=== PATIENT | male | born 1970 | race Caucasian/White ===

== ENCOUNTER 2018-11-10 12:05 | Emergency (ER) | payer OTHER, SELFPAY ==
[2018-11-10 12:16] VITALS: BP 148/101; PULSE 77; RESP 14; TEMP 36.4; O2SAT 96
--- NOTE | 2018-11-10 13:02 | PC.NURSE ---
Surgifoam and tube guaze dressing
--- NOTE | 2018-11-10 13:10 | ED_ITS ---
HPI - Skin/Abscess/Foreign Bdy <FELIX Lizama - Last Filed: 11/10/18 13:16> General Chief complaint: Skin/Abscess/Foreign Body Stated complaint: Cut thumb Time Seen by Provider: 11/10/18 12:31 Source: patient Mode of arrival: ambulatory Limitations: no limitations History of Present Illness HPI narrative: The patient is a 48-year-old male for smoker with history of generalized anxiety disorder who states he cut the tip of his thumb off. He states he was using a metal knife. His tetanus was in the past 3 years. He states he has full range of motion of his left thumb. He is right-hand dominant. He did not wash out the laceration prior to arrival. Related Data Previous Rx's Medication Instructions Recorded alprazolam 1 mg tablet 1 mg PO TID PRN #20 tab 07/26/18 propranolol 20 mg tablet 20 mg PO .COMPLEX #14 tab 07/26/18 Allergies Allergy/AdvReac Type Severity Reaction Status Date / Time No Known Drug Allergies Allergy Verified 11/10/18 12:19 Review of Systems <FELIX Lizama - Last Filed: 11/10/18 13:16> Review of Systems GENERAL: Denies chills, fatigue, malaise, fever, sweats. HEENT: Denies sinus pain, ear pain, sore throat, difficulty swallowing, dizzine ss. RESPIRATORY: Denies dyspnea, cough, wheezing, hemoptysis, sputum. CARDIOVASCULAR: Denies chest pain, palpitations, orthopnea, edema, GASTROINTESTINAL: Denies nausea, vomiting, abdominal pain, diarrhea, constipation, melena. : Denies dysuria, frequency, incontinence, hematuria, urinary retention. MUSCULOSKELETAL: See HPI SKIN: See HPI NEUROLOGIC: Denies weakness, headache, numbness, change in speech, confusion, seizures, incoordination. PSYCHIATRIC: No concerning psychosocial issues. 12 point review of systems is negative except for those stated above PFSH <FELIX Lizama - Last Filed: 11/10/18 13:16> Medical History Irritable bowel syndrome (IBS) (Chronic) Generalized anxiety disorder (Chronic) Social History Smoking Status: Former smoker Exam <FELIX Lizama - Last Filed: 11/10/18 13:16> Narrative Exam Narrative: GENERAL: This is a well-nourished, well-developed patient, in no acute distress HEAD: Atraumatic. Normocephalic. No temporal or scalp tenderness. EYES: Pupils equal round and reactive. Extraocular motions intact. No scleral icterus. No injection or drainage. ENT: Nose without bleeding, purulent drainage or septal hematoma. Throat without erythema, tonsillar hypertrophy or exudate. Uvula midline. Airway patent. NECK: Trachea midline. No JVD or lymphadenopathy. Supple, nontender, no meningeal signs. CARDIOVASCULAR: Regular rate and rhythm RESPIRATORY: No cough. No increased respiratory effort. No stridor. EXTREMITIES: The patient is able to flex and extend left thumb against resistance. Positive left radial pulse. Capillary refill less than 2 seconds. BACK: Nontender without deformity or crepitance. No flank tenderness. NEURO: AOx3. SKIN: 1 x 1.5 cm avulsion to tip of left thumb. No active bleeding on exam. No obvious foreign bodies. Through dermis. No obvious muscle or tendon involvement. Initial Vital Signs Initial Vital Signs: Vital Signs Temperature 97.6 F 11/10/18 12:16 Pulse Rate 77 11/10/18 12:16 Respiratory Rate 14 11/10/18 12:16 Blood Pressure 148/101 H 11/10/18 12:16 Pulse Oximetry 96 11/10/18 12:16 <Ade Szymanski DO - Last Filed: 11/13/18 21:43> Initial Vital Signs Initial Vital Signs: Vital Signs Temperature 97.6 F 11/10/18 12:16 Pulse Rate 77 11/10/18 12:16 Respiratory Rate 14 11/10/18 12:16 Blood Pressure 148/101 H 11/10/18 12:16 Pulse Oximetry 96 11/10/18 12:16 Procedures <FELIX Lizama - Last Filed: 11/10/18 13:16> Orthopedic Splinting/Casting Injury #1: Side: left Upper Extremity Injury Location: finger Upper Extremity Immobilizer: aluminum form splint Post splinting neuro exam: intact Post splinting vascular exam: intact Placed by: Nursing Course <FELIX Lizama - Last Filed: 11/10/18 13:16> Vital Signs - 8 hr 11/10/18 12:16 Temperature 97.6 F Pulse Rate 77 Respiratory Rate 14 Blood Pressure 148/101 H Pulse Oximetry 96 <Ade Szymanski DO - Last Filed: 11/13/18 21:43> Vital Signs - 8 hr 11/10/18 12:16 Temperature 97.6 F Pulse Rate 77 Respiratory Rate 14 Blood Pressure 148/101 H Pulse Oximetry 96 MDM - Skin/Abscess/Foreign Bdy <YADIRA Lizama-BC - Last Filed: 11/10/18 13:16> [facility] Narrative Medical decision making narrative: The patient is a 48-year-old male who presents with an avulsion laceration. It was cleansed with Hibiclens in the emergency department. He is neurovascularly intact. Given the nature of the injury, I could not suture it. It was dressed by nursing with surgifoam gauze. I discussed at length monitoring for signs and symptoms of infection such as redness, pus etc. Patient declined x-ray today. He states he is not concerned about fracture or possible foreign body. I discussed at length follow up with primary care provider as well as coming back to the emergency department for any acute concerns such as chest pain shortness of breath etc. No questions or concerns upon discharge Discharge Plan Departure Patient Disposition: Home Clinical Impression: Avulsion of skin of thumb Qualifiers: Encounter type: initial encounter Laterality: left Qualified Code(s): S61.002A - Unspecified open wound of left thumb without damage to nail, initial encounter Discharge Date/Time: 11/10/18 13:16 Interventions: ED Discharge Assessment Last Done: 11/10/18 13:15 Instructions: DI for Avulsion Laceration (Not Requiring Sutures) Activity Restrictions/Additional Instructions: Please monitor your avulsion for signs and symptoms of infection. This includes redness, pus and fever. Please be evaluated if any of these occur. Please keep the laceration clean and dry. Do not submerge her laceration and dirty water such as dishwater, wisdom water etc. Please follow up with primary care provider as needed and able. Come back to the emergency department for any acute concerns such as chest pain shortness of breath etc Prescriptions: No Action alprazolam 1 mg tablet 1 mg PO TID PRN (Reason: anxiety) Qty: 20 RF: 0 propranolol 20 mg tablet 20 mg PO .COMPLEX Qty: 14 RF: 3 Referrals: Angelito Manley MD [Primary Care Provider] - <Ade Szymanski DO - Last Filed: 11/13/18 21:43> Cosign ED Attending Cosclaraature Attestation: I was immediately available in the department for consultation. Documentation has been reviewed. I agree with assessment and plan.
== END 2018-11-10 13:16 | disposition home or self-care (01) ==
PROVIDERS: Emergency Provider Nurse Practitioner Family; PCP Internal Medicine
DX: S61.012A Laceration without foreign body of left thumb without damage to nail, initial encounter (principal); W26.0XXA Contact with knife, initial encounter
CPT/HCPCS: 99282; 99283

== ENCOUNTER → 2018-11-27 15:03 | Outpatient (CLI) | payer OTHER, SELFPAY | PROVIDERS: PCP Internal Medicine; Visit Provider Physician Assistant | DX: L08.9 Local infection of the skin and subcutaneous tissue, unspecified (principal); T14.8XXA Other injury of unspecified body region, initial encounter | CPT/HCPCS: 87070; 87075; 87205 ==

== ENCOUNTER → 2019-10-11 14:22 | Outpatient (CLI) | payer OTHER, SELFPAY ==
[2019-10-13 21:36] LABS: COVID19 Sendout Not Detected (Not Detected)
== END ==
PROVIDERS: PCP Internal Medicine; Visit Provider Family Medicine
DX: R05 Cough (principal)
CPT/HCPCS: 87635

== ENCOUNTER → 2019-10-11 14:33 | Outpatient (CLI) | payer OTHER, SELFPAY ==
--- NOTE | 2019-10-11 14:35 | DI.RAD.S_ITS ---
PROCEDURE: XR CHEST 2V INDICATIONS: cough, SOB TECHNIQUE: 2 views of the chest were acquired. COMPARISON: None. FINDINGS: Surgical changes and devices: None. Lungs and pleura: Increased vascular markings in bilateral hilar region are seen with mild frontal wall thickening. No definite focal infiltrate. No pleural effusions or pneumothorax. Mediastinum: Mediastinal contours are normal. Heart size is normal. Bones and chest wall: No suspicious bony abnormalities. Soft tissues appear unremarkable. IMPRESSION: Suggestion of mild reactive airway disease. No focal infiltrate. Dictated by: Mario Mcneil M.D. on 10/11/2019 at 14:47 Approved by: Mario Mcneil M.D. on 10/11/2019 at 14:51
== END ==
PROVIDERS: PCP Internal Medicine; Referring Provider Family Medicine; Visit Provider Family Medicine
DX: Z20.828 Contact with and (suspected) exposure to other viral communicable diseases (principal); R05 Cough; R06.02 Shortness of breath
CPT/HCPCS: 71046; 87635

== ENCOUNTER → 2020-01-02 16:47 | Outpatient (CLI) | payer OTHER, SELFPAY ==
[2020-01-02 17:29] LABS: Alanine Aminotransferase 22 IU/L (<50); Albumin 4.6 g/dL (3.5-5.0); Albumin Globulin Ratio 1.6 (1.0-2.8); Alkaline Phosphatase 55 U/L (38-126); Aspartate Aminotransferase 33 IU/L (17-59); BUN Creatinine Ratio 26.9 (6-22); Bilirubin Total 0.8 mg/dL (0.2-1.3); Blood Urea Nitrogen 25 mg/dL (9-20); Calcium 9.2 mg/dL (8.4-10.2); Carbon Dioxide 29 mmol/L (22-32); Chloride 104 mmol/L (98-107); Estimated Glomerular Filt Rate > 60.0 mL/min (>60); Globulin 2.8 g/dL (1.7-4.1); Glucose 71 mg/dL (70-100); HEMOLYSIS 21 (0-50); Potassium 4.2 mmol/L (3.4-5.1); Sodium 140 mmol/L (137-145); Total Protein 7.4 g/dL (6.3-8.2)
== END ==
PROVIDERS: PCP Internal Medicine; Referring Provider Internal Medicine; Visit Provider Internal Medicine
DX: I10 Essential (primary) hypertension (principal)
CPT/HCPCS: 36415; 80053; 84443

== ENCOUNTER 2020-02-05 19:53 | Emergency (ER) | payer OTHER, SELFPAY ==
[2020-02-05 20:04] VITALS: BP 159/93; PULSE 79; RESP 14; TEMP 37.1; O2SAT 99
--- NOTE | 2020-02-05 20:12 | ED_ITS ---
HPI - General Adult General Chief complaint: Abdominal Pain Stated complaint: back, stomach, kidney pain Time Seen by Provider: 02/05/20 19:54 Source: patient Mode of arrival: Ambulatory Limitations: no limitations History of Present Illness HPI narrative: 49-year-old here for evaluation of left-sided flank pain. R adiating down to the left side of his groin. He states his symptoms started several hours prior to arrival. Has been consistent since then however he has had times where he has had more pain than others. No fevers. Past couple days has had some urinary frequency. No blood in his urine. Has not tried anything for symptoms prior to arrival. He is not ready kidney stone in the past. Related Data Home Medications Medication Instructions Recorded Confirmed No Known Home Medications 01/02/20 01/02/20 Allergies Allergy/AdvReac Type Severity Reaction Status Date / Time No Known Drug Allergies Allergy Verified 01/02/20 16:07 Review of Systems Constitutional Constitutional: Denies fever(s) Cardiovascular Cardiovascular: Denies chest pain and Denies dyspnea Respiratory Respiratory: Denies dyspnea Gastrointestinal Gastrointestinal: Reports abdominal pain, Denies change in bowel habits, Reports nausea and Denies vomiting Genitourinary Genitourinary: Reports dysuria and Reports urinary urgency Genitourinary: Reports dysuria and Reports urinary urgency Musculoskeletal Musculoskeletal: Denies arthralgias and Denies myalgias Integumentary/Breasts Skin/Breast: Denies rash Neurologic Neurologic: Denies behavioral changes Psychiatric Psychiatric: Denies behavioral changes Hematologic/Lymphatic Hematologic/Lymphatic: Denies easy bleeding and Denies easy bruising Allergic/Immunologic Allergic/Immunologic: Denies urticaria Patient History Medical History Generalized anxiety disorder (Chronic) Irritable bowel syndrome (IBS) (Chronic) Surgical History S/P appendectomy (Chronic) S/P arthroscopic knee surgery (Inactive) S/P laminectomy (Inactive) Family History Father Alport syndrome Social History Smoking Status: Former smoker Smoking Status: Former smoker alcohol intake frequency: 0-2 drinks per day Substance Use Type: does not use Exam Initial Vital Signs Initial Vital Signs: Vital Signs Temperature 98.7 F 02/05/20 20:04 Pulse Rate 79 02/05/20 20:04 Respiratory Rate 14 02/05/20 20:04 Blood Pressure 159/93 H 02/05/20 20:04 Pulse Oximetry 99 02/05/20 20:04 Const General: cooperative and comfortable Limitations: mental status not altered HENMT Head: normal to inspection and normocephalic Resp Effort & Inspection: normal respiratory effort Cardio Rate: regular rate GI Inspection: non-distended Palpation: soft and No tender Back/Spine/Pelvis Back: No CVA tenderness Skin Lesions: no lesions Rashes: no rashes Neuro General: patient alert and patient awake Cognition: normal cognition Speech: speech normal Extrem General: normal to inspection and capillary refill normal Psych Appearance: grossly normal and well kempt Scores GCS [place]ár[place] coma scale eye opening: Spontaneous [place] coma scale verbal response: Orientated [place]ár[place] coma scale motor response: Obey commands [place]ár[place] coma scale total score: 15 Course Orders Ordered: ED Orders 02/05/20 20:06 EKG-12 Lead Stat 02/05/20 20:10 Complete Blood Count AUTO DIFF Stat Comprehensive Metabolic Panel Stat Lipase Stat Partial Thromboplastin Time Stat Prothrombin Time INR Stat 02/05/20 20:11 CT kidney ureter bladder (KUB) Stat Discontinued Medications Hydrocodone Bitart/Acetaminophen (Vicodin 5/325 Prepack) 1 bottle MISC SEEINSTR ONE Stop: 02/05/20 21:12 Last Admin: 02/05/20 21:33 Dose: 1 bottle Documented by: DAVID Hydromorphone HCl (Dilaudid) 1 mg IV NOW ONE Stop: 02/05/20 20:12 Last Admin: 02/05/20 20:19 Dose: 1 mg Documented by: OLY Ketorolac Tromethamine (Toradol) 30 mg IV NOW ONE Stop: 02/05/20 21:12 Last Admin: 02/05/20 21:33 Dose: 30 mg Documented by: DAVID Ondansetron HCl (Zofran Odt Prepack) 1 bottle MISC SEEINSTR ONE Stop: 02/05/20 21:12 Last Admin: 02/05/20 21:33 Dose: 1 bottle Documented by: DAVID Vital Signs Vital signs: Vital Signs - 8 hr 02/05/20 20:04 02/05/20 21:46 Temperature 98.7 F Pulse Rate 79 69 Respiratory Rate 14 14 Blood Pressure 159/93 H 119/70 Pulse Oximetry 99 99 Medical Decision Making Lab Data Lab results reviewed: Yes I reviewed the patient's lab results. Result diagrams: 02/05/20 20:10 02/05/20 20:10 Labs: Lab Results 02/05/20 02/05/20 02/05/20 Range/Units 20:10 20:10 20:10 WBC 4.6 (4.5-11.0) X10^3/uL RBC 4.72 (4.5-5.9) X10^6/uL Hgb 14.9 (13.5-17.5) g/dL Hct 43.9 (41-53) % MCV 93.0 (80-100) fL MCH 31.5 (26-34) PG MCHC 33.8 (30-36) % RDW 12.9 (11.6-14.8) % Plt Count 153 (150-400) X10^3/uL Neut % (Auto) 62.2 (50-75) % Lymph % (Auto) 25.2 (25-40) % [place] % (Auto) 11.0 (3-14) % Eos % (Auto) 1.1 L (2-4) % Baso % (Auto) 0.5 (0-2) % Neut # (Auto) 2800 (5070-1609) /uL Lymph # (Auto) 1200 (2039-7407) /uL [place] # (Auto) 500 (0-900) /uL Eos # (Auto) 100 (0-450) /uL Baso # (Auto) 0 (0-100) /uL PT 11.0 (10.1-12.7) SECONDS INR 1.0 (0.9-1.3) APTT 32 (26.4-36.2) SECONDS Sodium 139 (137-145) mmol/L Potassium 3.9 (3.4-5.1) mmol/L Chloride 102 (98-107) mmol/L Carbon Dioxide 30 (22-32) mmol/L BUN 25 H (9-20) mg/dL Creatinine 1.31 H (0.66-1.25) mg/dL Estimated GFR 58.7 L (>60) mL/min BUN/Creatinine Ratio 19.1 (6-22) Glucose 82 (70-100) mg/dL Calcium 9.5 (8.4-10.2) mg/dL Total Bilirubin 1.4 H (0.2-1.3) mg/dL AST 32 (17-59) IU/L ALT 17 (<50) IU/L Alkaline Phosphatase 54 (38-126) U/L Total Protein 7.9 (6.3-8.2) g/dL Albumin 4.7 (3.5-5.0) g/dL Globulin 3.2 (1.7-4.1) g/dL Albumin/Globulin Ratio 1.5 (1.0-2.8) Lipase 60 (23-300) U/L Urine Dip Bedside Urine Glucose Negative Bedside Urine Bilirubin - Negative Bedside Urine Ketone - Negative Urine Specific [place] 1.020 Bedside Urine Occult Blood - Negative Bedside Urine pH 6.0 Bedside Urine Protein - Negative Bedside Urine Urobilinogen - Negative Bedside Urine Nitrite - Negative Bedside Urine Leukocytes - Negative Esterase Point of care testing: Urine Dip Bedside Urine Glucose Negative Bedside Urine Bilirubin - Negative Bedside Urine Ketone - Negative Urine Specific [place] 1.020 Bedside Urine Occult Blood - Negative Bedside Urine pH 6.0 Bedside Urine Protein - Negative Bedside Urine Urobilinogen - Negative Bedside Urine Nitrite - Negative Bedside Urine Leukocytes - Negative Esterase Imaging Data CT scan - abdomen/pelvis: Radiologist's Impression: [place] [address] CT Scan Report Signed Patient: Glenn Almeida [facility]#: [id number] : 1970Acct:[id number] Age/Sex: 49 / MDate of Service: 02/05/20 Loc: ED Accession Number: [id number] Procedure: CT kidney ureter bladder (KUB) Ordering Provider: [place] D.O. PROCEDURE: CT KIDNEY URETER BLADDER (KUB) INDICATIONS: L sided pain concern for stone TECHNIQUE: Noncontrast 5 mm thick sections acquired from the diaphragms to the symphysis. 5 mm thick coronal and sagittal reformats were then performed. For radiation dose reduction, the following was used: automated exposure control, adjustment of mA and/or kV according to patient size. COMPARISON: None. FINDINGS: Image quality: Excellent. Lung bases: Lung bases are clear. Heart size is normal. Urinary system: Both kidneys are normal in size. No kidney stones. Mild left- sided perinephric fat stranding and prominence of left renal collecting system is seen. Prominence of left ureter is also noted. No obstructing renal stone or ureteral stone. No right-sided hydronephrosis or perinephric fat stranding. Right ureter is within normal limits.. Bladder wall thickness is normal. 3 millimeter calcification is seen in dependent portion of bladder lumen just distal to left UVJ suggestive of a passed left-sided renal stone. Other solid organs: Liver is normal in size. Gallbladder is within normal limits. Pancreas is normal in contours. Spleen is normal in size. No adrenal nodules. Peritoneum and bowel: Unenhanced bowel loops demonstrate normal wall thickness and caliber. No free fluid or air. There is prior appendectomy. Nodes and vessels: No retroperitoneal or mesenteric adenopathy by size criteria. Aorta and inferior vena cava are normal in caliber. Abdominal wall: No ventral hernias. Pelvis: No free pelvic fluid. No inguinal hernias or adenopathy. Bones: No suspicious bony lesions. No vertebral body compression fractures. IMPRESSION: 1. Finding is consistent with a passed 3 millimeter left renal stone with mild residual left-sided hydronephrosis and hydroureter and mild left perinephric fat stranding. Normal appearing right kidney and right ureter. No gross bladder wall abnormality. 2. No bowel obstruction. No free fluid or free air. Prior appendectomy. Dictated by: Mario Mcneil M.D. on 02/05/2020 at 20:42 Approved by: Mario Mcneil M.D. on 02/05/2020 at 20:48 ECG Data Attestation: I personally reviewed and interpreted this ECG as follows: Prior ECG tracings: not available for review Interpretation: Sinus rhythm Ventricular rate 80 Normal axis Normal QRS Normal QTC No ST T wave changes MDM Narrative Medical decision making narrative: Unable to reproduce the patient's presenting symptoms on palpation. Creatinine unremarkable. Urinalysis shows no signs of infection. CT scan shows what appears to be a recently passed 3 mm stone. I suspect that this is what is causing the patient's discomfort. I did discuss this with the patient. Will send home with symptom treatment. He was given strict return precautions. He expressed understanding and agreement plan. Discharge Plan Departure Patient Disposition: Home Clinical Impression: Renal colic on left side Discharge Date/Time: 08/19/20 21:46 Instructions: Kidney Stones -- Adult Activity Restrictions/Additional Instructions: Take the medications as needed. You can in addition to the medicines were given this evening take Tylenol/ibuprofen. Contact your primary provider for follow- up. Return to the emergency department for any fevers, inability to urinate or any other new or worsening symptoms. Prescriptions: No Action No Known Home Medications RF: 0 Referrals: Angelito Manley MD [Primary Care Provider] -
[2020-02-05] MEDS: HYDROMORPHONE 1 MG INJ IV (20:19)
[2020-02-05 20:24] LABS: Add Manual Diff / Slide Review NO; Basophils Absolute Auto 0 /uL (0-100); Basophils Percent Auto 0.5 % (0-2); Eosinophils Absolute Auto 100 /uL (0-450); Eosinophils Percent Auto 1.1 % (2-4); Hematocrit 43.9 % (41-53); Hemoglobin 14.9 g/dL (13.5-17.5); Lymphocytes Absolute Auto 1200 /uL (1100-4500); Lymphocytes Percent Auto 25.2 % (25-40); Mean Corpuscular HGB Conc 33.8 % (30-36); Mean Corpuscular Hemoglobin 31.5 PG (26-34); Monocytes Absolute Auto 500 /uL (0-900); Neutrophils Absolute Auto 2800 /uL (1500-7000); Neutrophils Percent Auto 62.2 % (50-75); Platelet Count 153 X10^3/uL (150-400); Red Blood Cell Count 4.72 X10^6/uL (4.5-5.9); Red Cell Distribution Width 12.9 % (11.6-14.8); White Blood Cell Count 4.6 X10^3/uL (4.5-11.0)
[2020-02-05 20:33] LABS: PTT Partial Thromboplastin Tim 32 SECONDS (26.4-36.2)
[2020-02-05 20:35] LABS: Alanine Aminotransferase 17 IU/L (<50); Albumin 4.7 g/dL (3.5-5.0); Albumin Globulin Ratio 1.5 (1.0-2.8); Alkaline Phosphatase 54 U/L (38-126); Aspartate Aminotransferase 32 IU/L (17-59); BUN Creatinine Ratio 19.1 (6-22); Bilirubin Total 1.4 mg/dL (0.2-1.3); Blood Urea Nitrogen 25 mg/dL (9-20); Calcium 9.5 mg/dL (8.4-10.2); Carbon Dioxide 30 mmol/L (22-32); Chloride 102 mmol/L (98-107); Estimated Glomerular Filt Rate 58.7 mL/min (>60); Globulin 3.2 g/dL (1.7-4.1); Glucose 82 mg/dL (70-100); HEMOLYSIS < 15 (0-50); Lipase 60 U/L (23-300); Potassium 3.9 mmol/L (3.4-5.1); Sodium 139 mmol/L (137-145); Total Protein 7.9 g/dL (6.3-8.2)
[2020-02-05] MEDS: HYDROCODONE/ACET 5/325 PREPACK 1 BOTTLE MISC (21:33)
[2020-02-05] MEDS: KETOROLAC 60 MG/2 ML VIAL 30 MG IV (21:33)
[2020-02-05] MEDS: ONDANSETRON 4 MG ODT PREPACK 1 BOTTLE MISC (21:33)
[2020-02-05 21:46] VITALS: BP 119/70; PULSE 69; RESP 14; O2SAT 99
== END 2020-02-05 21:46 | disposition home or self-care (01) ==
PROVIDERS: Emergency Provider Emergency Medicine; PCP Internal Medicine
DX: N20.0 Calculus of kidney (principal); R30.0 Dysuria; R11.0 Nausea
CPT/HCPCS: 36415; 74176; 80053; 81003; 83690; 85025; 85610; 85730; 93005; 93010; 96374; 96375; 99284; J1170; J1885